=== PATIENT | male | born 1990 | race Two or more races ===

== ENCOUNTER → 2016-03-30 | Day surgery (SDC) | payer BC ==
[~2016-03-30] MED LIST: BUPIVACAINE 0.5% 30 ML VIAL ONE; CEFAZOLIN 1 GM VIAL ONE; DEXAMETHASONE 4 MG/ML VIAL IV ONE; FENTANYL 100 MCG/2 ML VIAL IV PRN; GLYCOPYRROLATE 1 MG VIAL IM ONE; HYDROmorphone 1 MG INJECTION IV PRN; HYDROmorphone 2 MG/ML VIAL IM ONE; LABETALOL 20 MG/4 ML SYRINGE IV PRN; LIDOCAINE 1% 30 ML VIAL (PRESERVATIVE FREE) ONE; MEPERIDINE 25 MG/ML TUBEX IV PRN; MIDAZOLAM 2 MG/2 ML VIAL IV ONE; ONDANSETRON HCL 4 MG ODT TAB PO PRN; ONDANSETRON HCL 4 MG/2 ML VIAL IV ONE; ONDANSETRON HCL 4 MG/2 ML VIAL IV PRN; PROPOFOL 200 MG/20 ML VIAL IV ONE; hydrALAZINE 20 MG/ML VIAL IV PRN
--- NOTE | 2016-03-30 12:27 | HIM.ANES ---
Anesthesia Evaluation & Plan Diagnoses: SPRAIN OF TIBIOFIBULAR LIGAMENT OF UNSP ANKLE, INIT JULIETTENTR (03/30/16) Consented Procedure: SYNDEMOSIS REPAIR OF THE RIGHT ANKLE AND OTHER PROCEDURES INDICATED - Focused Review of Systems Cardiac History: No: Hx Hypertension, Hx Cardiac Disorders EKG Rhythm: Sinus Rhythm HEENT: No: Loose/Decaying Teeth, Other HEENT Problems Gastrointestinal: No: Hx Gastrointestinal Disorders Neurological/Musculoskeletal: No: Hx Neurological Disorders Psychological: No Hx Mental/Emotional Disorders Blood/Autoimmune: No: Hx AIDS, Hx Hepatitis (type) Smoking Status: Never smoker - Focused Physical Exam NPO since: 03/29/162229 Mallampati: Class I Thyromental Distance: Greater than 3 Neck: Full Range of Motion Dental: Normal - no significant findings, Other (chipped bottom tooth) Cardiovascular/Chest: Normal (RRR no mumurs or rubs.) Respiratory: Lungs clear. negative: Rhonchi, Wheezing Any problems with anesthesia, including nausea and vomiting?: No Any relatives with a history of Malignant Hyperthermia?: No Does patient have a history of Malignant Hyperthermia?: No Beta Boris given (if appropriate): N/A Does the patient have a history of Motion Sickness-: No Other: Allergies Allergy/AdvReac Type Severity Reaction Status Date / Time venom-honey bee Allergy Edema-Gener Verified 03/30/16 11:37 alized Home Medications Medication Instructions Recorded Last Taken Type Naproxen Sodium [Aleve] 220 mg PO BID PRN 03/29/16 03/28/16 History Height and Weight Patient's height 5 ft 11 in Patient's weight 87.09 kg Vital Signs Temperature 98 F 03/30/16 11:38 Pulse Rate 62 03/30/16 11:45 Respiratory Rate 18 03/30/16 11:45 Blood Pressure 131/73 03/30/16 11:45 Pulse Oxygen Saturation 98 03/30/16 11:38 METS - Level of Activity: Swimming, singles tennis, football)MET: metabolic equivalent - Anesthetic Plan Anesthesia Type: General ASA Class: 1 -: I have examined this patient and reviewed the medical record. The patient has been assessed prior to anesthesia. Risks and benefits of anesthesia and anesthetic technique options have been discussed and all questions answered. The patient accepts the risk and desires me to proceed with the planned anesthetic.
[2016-03-30 14:15] VITALS: TEMP 98
--- NOTE | 2016-03-30 14:23 | HIMOP ---
DATE OF PROCEDURE: 03/30/2016 PREOPERATIVE DIAGNOSIS: Right ankle syndesmosis disruption. POSTOPERATIVE DIAGNOSIS: Right ankle syndesmosis disruption. PROCEDURE PERFORMED: Syndesmosis repair of right ankle. SURGEON: Uvaldo Bruce MD [facility]: Matt Negrete. ANESTHESIA: General endotracheal anesthesia. IV FLUIDS: Crystalloids. ESTIMATED BLOOD LOSS: Minimal. SPECIMENS: None. COMPLICATIONS: None. IMPLANTS: 1. [place] 2-hole locking plate. 2. A 55 and 60 millimeter long 2 syndesmotic screws. BRIEF HISTORY: Josh Garcia is a 25-year-old male who sustained a basketball injury and had an external rotation type injury with syndesmosis disruption of his right ankle. He had x-rays confirming the lateral displacement of the talus as well as the widening of syndesmosis. Based on the nature of the injury, repair of the syndesmosis was recommended. The patient understood that the risks involved in surgery include, but are not limited to risk of infection, posttraumatic arthritis, need for further surgery, and continued pain. He volunteered an informed consent. The patient was seen on the day of surgery in the preop holding area. Surgical site was marked. The patient was then wheeled back into the operating room. DESCRIPTION OF THE PROCEDURE: The patient was placed supine on the operating table. Proper timeout was performed. A 2 g of IV Ancef was given. Right lower extremity tourniquet above the knee was applied. Right lower extremity was then prepped and draped. We started with the examination of the ankle under the C-arm. External rotation stress was given and it showed widening of the syndesmosis as well as widening of the medial joint space. We then proceeded with making a lateral incision at the level of the syndesmosis over the fibula. Skin and deep fascia was incised. The distal fibula was exposed. The syndesmosis was reduced using a 2- point clamps. This was followed by application of a lateral fibular plate. The holes were drilled for the syndesmotic screws. 5-0 noncannulated screws were used. We used 2 screws one was 55 millimeter and the other one was 60 millimeter long. The screws were tightened under C-arm guidance. The reduction of the syndesmosis was noticed under the C-arm images. Final AP and lateral x-rays were obtained. The wound was copiously irrigated with normal saline and was closed in layers. The patient tolerated the procedure very well and was taken to the recovery room in stable condition. DISPOSITION: The patient would be discharged home today. He would be nonweightbearing on his right lower extremity for 2 weeks. He would follow up in the clinic. His implants would be removed roughly at 3-6 months. [id number]
--- NOTE | 2016-03-30 15:44 | SC.ANESPOS ---
Post-Anesthesia Note LOC: Fully Awake Post-Anesthesia Assessment: Awake, Returned to Baseline, Hemodynamically Stable , Pain Control Adequate Phase I & II Recovery Complete: Yes Apparent Anesthesia Complication: No : N PACU Discharge Time: 14:50 - Vital Signs Blood Pressure: 161/93 Pulse: 88 Resp Rate: 16 O2 Sat: 99 Temp: 98 F - Comments Anesthesia Discharge Time Report Time 14:50
[2016-03-30 17:16] VITALS: BP 171/90; PULSE 73
== END ==
LOC: SDC 10:06
PROVIDERS: ATTEND Orthopaedic Surgery
PROC: 0SSF04Z Reposition Right Ankle Joint with Internal Fixation Device, Open Approach (ICD-10-PCS; principal; 2016-03-30 12:00)
DX: S93.431A Sprain of tibiofibular ligament of right ankle, initial encounter (principal); X50.0XXA Overexertion from strenuous movement or load, initial encounter; Y93.67 Activity, basketball
CPT/HCPCS: 27829; 97760; J0690; J2001; J3490; J1100; J1170; J2250; J2405